=== PATIENT | female | born 1945 | race Caucasian/White ===

== ENCOUNTER 2024-02-08 13:38 | Emergency (ER) | payer OTHER, SELFPAY ==
[2024-02-08] VITALS (15 sets, daily range): BP systolic 122–144; BP diastolic 72–88; PULSE 74–91; RESP 18; O2SAT 88–93; BMI 29.0
--- NOTE | 2024-02-08 14:05 | ED_ITS ---
HPI - General Adult General Chief complaint: Abdominal Pain Stated complaint: Abdominal pain Time Seen by Provider: 02/08/24 13:51 History of Present Illness HPI narrative: Patient presents to the emergency department complaining of abdominal pain. Patient states she has had difficulty having bowel movement. She states she had to strain to get a small bowel movement out today. Feels like I have a baby in there Complaining of bloating and nausea no actual vomiting yet. 78-year-old woman presenting to the emergency department with concern of increasing abdominal pain and distention. Will get some intermittent sharp cramps of pain. Does have a history of uterine cancer and intravaginal radiation along with associated surgery. Has also had gastric bypass. Beginning yesterday afternoon began to have an increasing pain. Does dry heave but understandably does not apparently typically vomit. She has also been having some constipation noting small hard stool early this morning and probably yesterday as well. Does seem to alternate between constipation and diarrhea. Has been admitted for bowel obstructions in the past. Has not required intervention beyond bowel rest. She has not had a fever here today. Did try some Zofran at home. Feels like she is belching a lot. Has not been passing any gas since stool as noted above. Related Data Home Medications Medication Instructions Recorded Confirmed albuterol sulfate 90 mcg/actuation 2 puff inhalation Q4-6H PRN 02/08/24 02/08/24 aerosol inhaler wheezing atorvastatin 10 mg tablet 10 mg PO DAILY cholesterol 02/08/24 02/08/24 cholecalciferol (vitamin D3) 125 PO 02/08/24 mcg (5,000 unit) capsule gabapentin 300 mg capsule 300 mg PO 3XD 02/08/24 02/08/24 gabapentin 600 mg tablet 300 mg PO 3XD 02/08/24 02/08/24 hydrochlorothiazide 25 mg tablet 25 mg PO DAILY blood pressure 02/08/24 02/08/24 lisinopril 40 mg tablet 40 mg PO DAILY blood pressure 02/08/24 02/08/24 metoprolol tartrate 25 mg tablet 25 mg PO BID 02/08/24 02/08/24 oxybutynin chloride 5 mg 5 mg PO DAILY 02/08/24 02/08/24 tablet,extended release 24 hr vibegron 75 mg tablet (Gemtesa) 75 mg PO DAILY 02/08/24 02/08/24 Allergies Allergy/AdvReac Type Severity Reaction Status Date / Time No Known Drug Allergies Allergy Verified 02/08/24 16:38 Review of Systems 2 Status of ROS: Reports: 6 or more systems reviewed and unremarkable except as noted in History and below [facility] Social History Smoking Status: Never smoker Do you use any of these nicotine containing products: None Second hand tobacco smoke exposure: No How often do you have a drink containing alcohol: never How often do you have six or more drinks on one occasion: Never AUDIT-C Alcohol total score: 0 Non-prescribed substance use: denies use Exam Narrative: Exam Narrative: Pleasant. Conversing easily. Breathing easily. Lungs appear to be clear. Abdomen with sparse but very audible bowel sounds. Does appear generally full and mildly tense. Diffusely mildly tender without peritoneal signs. Diffusely tympanitic. Tender also to percussion. Heart in mildly elevated rate in a regular rhythm. She has a 2/6 although systolic murmur with some carotid radia tion. Consistent with aortic stenosis. Lower extremities are with some dependent edema. Is well-perfused moving all extremities without difficulty Const: Vital Signs, click to edit/add: Vital Signs - 24 hr 02/08/24 13:46 02/08/24 18:29 02/08/24 18:30 Pulse Rate 91 83 Pulse Rate [Right Pulse Oximeter] 90 Respiratory Rate 18 Blood Pressure Blood Pressure [Ri ght Upper Arm] 144/88 H Pulse Oximetry 93 90 92 Oxygen Delivery Me thod Room Air 02/08/24 18:48 02/08/24 18:49 02/08/24 19:00 Pulse Rate 79 82 79 Pulse Rate [Right Pulse Oximeter] Respiratory Rate Blood Pressure 130/80 Blood Pressure [Ri ght Upper Arm] Pulse Oximetry 89 88 93 Oxygen Delivery Me thod 02/08/24 19:02 02/08/24 19:15 02/08/24 19:21 Pulse Rate 84 85 81 Pulse Rate [Right Pulse Oximeter] Respiratory Rate Blood Pressure 129/72 138/78 Blood Pressure [Ri ght Upper Arm] Pulse Oximetry 92 93 91 Oxygen Delivery Me thod 02/08/24 19:30 02/08/24 19:41 02/08/24 19:45 Pulse Rate 87 84 82 Pulse Rate [Right Pulse Oximeter] Respiratory Rate Blood Pressure 128/79 Blood Pressure [Ri ght Upper Arm] Pulse Oximetry 91 89 92 Oxygen Delivery Ks thod Documenting provider has reviewed patient's vital signs: yes Course Vital Signs Vital signs: Initial Vital Signs Pulse Rate 90 02/08/24 13:46 Pulse Rhythm Regular 02/08/24 13:46 Pulse Strength 3+ Normal 02/08/24 13:46 Respiratory Rate 18 02/08/24 13:46 Blood Pressure 144/88 H 02/08/24 13:46 Blood Pressure Mean 106 H 02/08/24 13:46 Blood Pressure Position Supine 02/08/24 13:46 Pulse Oximetry 93 02/08/24 13:46 Oxygen Delivery Method Room Air 02/08/24 13:46 Vital Signs Pulse Rate 90 02/08/24 13:46 Respiratory Rate 18 02/08/24 13:46 Blood Pressure 144/88 H 02/08/24 13:46 Pulse Oximetry 93 02/08/24 13:46 Oxygen Delivery Method Room Air 02/08/24 13:46 Pulse Rate 82 02/08/24 19:45 Respiratory Rate 18 02/08/24 13:46 Blood Pressure 128/79 02/08/24 19:41 Pulse Oximetry 92 02/08/24 19:45 Oxygen Delivery Method Room Air 02/08/24 13:46 Medications Administered Medications: Generic Name Dose Route Start Last Admin Trade Name Freq PRN Reason Stop Dose Admin Gabapentin 300 mg 02/08/24 19:07 02/08/24 19:57 Gabapentin 300 Mg Capsule PO 02/08/24 19:08 300 mg ONCE ONE Administration Metoprolol Tartrate 25 mg 02/08/24 19:07 02/08/24 19:57 Metoprolol Tartrate 25 Mg Tablet PO 02/08/24 19:08 25 mg ONCE ONE Administration Discontinued Medications Generic Name Dose Route Start Last Admin Trade Name Freq PRN Reason Stop Dose Admin Hyoscyamine 0.25 mg 02/08/24 14:21 02/08/24 15:08 Hyoscyamine Sulfate 0.125 Mg Tab SUBLINGUAL 02/08/24 14:22 0.25 mg ONCE ONE Administration Sodium Chloride 1,000 mls @ 1,000 mls/hr 02/08/24 14:21 02/08/24 16:06 0.9 % Sodium Chloride 1000 Ml IV 02/08/24 15:20 Infused .Q1H ONE Infusion Ondansetron HCl 4 mg 02/08/24 14:21 02/08/24 15:09 Ondansetron 2 Mg/Ml Inj IVP 02/08/24 14:22 4 mg ONCE ONE Administration Medical Decision Making MDM Narrative Medical decision making narrative: I considered evaluated for constipation initially but I think given her history would be prudent to do full workup with evaluation for bowel obstruction. IV contrasted CT has been ordered along with labs. IV fluids, antiemetic, hyoscyamine for cramping Labs are reassuring with normal white count. Slightly elevated AST. I did review IV contrasted CT abdomen and pelvis. Shows numerous loops of moderately dilated small bowel consistent with small-bowel obstruction. Radiology over-read as below Study:?CT-Abdomen/Pelvis 91CC ISOVUE 370-02/08/2024 4:37:01 PM Ordering Physician:?DR BARRON Final Report: INDICATION: Abdominal pain and distention. TECHNIQUE: CT abdomen and pelvis acquired with 91 cc Isovue 370 IV contrast. COMPARISON: None. FINDINGS: Lower chest: Mild bibasilar atelectasis. Cardiomegaly. Aortic valve and mitral annular calcifications. Liver: Hepatic steatosis. No suspicious masses. Gallbladder and bile ducts: Status post cholecystectomy. Spleen: Unremarkable. Normal in size. No masses. Adrenal glands: Unremarkable. No nodules. Pancreas: Atrophy of the pancreas. Kidneys: Right renal cyst. No suspicious masses, stones, or hydronephrosis. GI tract: Markedly distended fluid-filled loops of small bowel with transition point in the pelvis. Collapsed small bowel distal to the transition point. Appendix not visualized. Lymph nodes: No lymphadenopathy. Vasculature: Scattered atherosclerotic calcifications. Abdominal aorta is normal in caliber. Omentum/Peritoneum/Abdominal Wall: Trace free fluid. Mild presacral stranding. No focal fluid collection. No free air. Pelvis: Status post hysterectomy. Bones: Degenerative changes. L3-L4 instrumented fusion. IMPRESSION: High-grade small bowel obstruction Did discuss with our general surgery for admission for bowel rest to this facility. Concern would be though that if surgery is needed, considering prior gastric bypass would have greater concern of internal hernia and significant adhesions secondary to pelvic/vaginal radiation. Recommendations were for transport to tertiary facility. Has been quite comfortable just belching periodically here in the emergency department. Did have one bowel movement. I have discussed with General surgery, Dr. Schmitz, [facility], namely [facility] in [place], who approves as appropriate for admission. Discussed also with hospitalist Dr. Mejia who is accepting. At this time anticipating transport. Lab Data Lab results reviewed: Yes I reviewed the patient's lab results Labs: Lab Results 02/08/24 Range/Units 14:42 WBC 5.44 (4.50-11.00) K/uL RBC 4.22 (4.00-5.20) m/uL Hgb 12.8 (12.0-16.0) gm/dL Hct 40.6 (33.0-51.0) % MCV 96 (80-100) fL MCH 30 (26-34) pg MCHC 32 (32-36) gm/dL RDW Coeff of Dinora 14.4 (11.5-15.5) % Plt Count 232 (140-440) K/uL Neut % (Auto) 66.4 (42.0-72.0) % Lymph % (Auto) 21.9 (20-44) % [place] % (Auto) 9.9 (0.0-11.0) % Eos % (Auto) 0.9 (0.0-7.0) % Baso % (Auto) 0.7 (0.0-3.0) % Neut # (Auto) 3.61 (1.7-7.0) K/uL Lymph # (Auto) 1.19 (0.90-2.90) K/uL [place] # (Auto) 0.50 (0.00-0.90) K/UL Eos # (Auto) 0.05 (0.00-0.50) K/uL Baso # (Auto) 0.04 (0.00-0.30) K/uL Abs Immat Gran (auto) 0.01 (0.00-0.30) K/uL Imm/Tot Granulo (auto) 0.2 % Sodium 137 (135-149) mmol/L Potassium 3.9 (3.6-5.1) mmol/L Chloride 100 (96-114) mmol/L Carbon Dioxide 32 (20-32) mmol/L Anion Gap 5 L (7-15) mEq/L BUN 21 (7-30) mg/dL Creatinine 0.6 (0.5-1.5) mg/dL Estimated Creat Clear 43.63 Estimated GFR 91 ml/min Glucose 93 (60-115) mg/dL Calcium 8.1 L (8.4-10.6) mg/dL Total Bilirubin 0.7 (0.1-1.5) mg/dL Direct Bilirubin 0.1 (0.0-0.5) mg/dL AST 50 H (12-35) U/L ALT 34 (4-35) U/L Alkaline Phosphatase 78 (40-150) U/L C-Reactive Protein < 0.5 L (0.5-1.0) mg/dL Total Protein 6.6 (6.0-8.3) g/dL Albumin 3.5 (3.3-5.0) g/dL TSH 2.500 (0.270-4.20) uIU/mL Discharge Plan Discharge Clinical Impression: SBO (small bowel obstruction) Patient Disposition: Xfer Other Discharge Location: [facility] Condition: Stable Prescriptions: No Action gabapentin 600 mg tablet 300 mg PO 3XD atorvastatin 10 mg tablet 10 mg PO DAILY oxybutynin chloride 5 mg tablet extended release 24hr 5 mg PO DAILY gabapentin 300 mg capsule 300 mg PO 3XD hydrochlorothiazide 25 mg tablet 25 mg PO DAILY albuterol sulfate 90 mcg/actuation HFA aerosol inhaler 2 puff inhalation Q4-6H PRN (Reason: wheezing) lisinopril 40 mg tablet 40 mg PO DAILY cholecalciferol (vitamin D3) 125 mcg (5,000 unit) capsule PO metoprolol tartrate 25 mg tablet 25 mg PO BID Gemtesa 75 mg tablet 75 mg PO DAILY Follow Up/Referrals: Wallace Hammonds MD [Primary Care Provider] - Stand Alone Forms: [facility] Info Instructions
--- NOTE | 2024-02-08 14:23 | CT_ITS ---
Patient: MORENO MCDANIEL Facility:?[facility] Patient ID:?[id number] Site Patient [id number]:?[id number]. Site :?[id number] Study:?CT-Abdomen/Pelvis 91CC ISOVUE 370-02/08/2024 4:37:01 PM Ordering Physician:?DR GONSALEZ Final Report: INDICATION: Abdominal pain and distention. TECHNIQUE: CT abdomen and pelvis acquired with 91 cc Isovue 370 IV contrast. COMPARISON: None. FINDINGS: Lower chest: Mild bibasilar atelectasis. Cardiomegaly. Aortic valve and mitral annular calcifications. Liver: Hepatic steatosis. No suspicious masses. Gallbladder and bile ducts: Status post cholecystectomy. Spleen: Unremarkable. Normal in size. No masses. Adrenal glands: Unremarkable. No nodules. Pancreas: Atrophy of the pancreas. Kidneys: Right renal cyst. No suspicious masses, stones, or hydronephrosis. GI tract: Markedly distended fluid-filled loops of small bowel with transition point in the pelvis. Collapsed small bowel distal to the transition point. Appendix not visualized. Lymph nodes: No lymphadenopathy. Vasculature: Scattered atherosclerotic calcifications. Abdominal aorta is normal in caliber. Omentum/Peritoneum/Abdominal Wall: Trace free fluid. Mild presacral stranding. No focal fluid collection. No free air. Pelvis: Status post hysterectomy. Bones: Degenerative changes. L3-L4 instrumented fusion. IMPRESSION: High-grade small bowel obstruction. Please note that all CT scans at this facility use dose modulation, iterative reconstruction, and/or weight-based dosing when appropriate to reduce radiation dose to as low as reasonably achievable. Dictated by Holger Paris MD @ 02/08/2024 4:55:32 PM Signed by:?Holger Paris MD @02/08/2024 4:55:32 PM (Electronic Signature)
[2024-02-08 15:03] LABS: Basophils Absolute Auto 0.04 K/uL (0.00-0.30); Basophils Percent Auto 0.7 % (0.0-3.0); Eosinophils Absolute Auto 0.05 K/uL (0.00-0.50); Eosinophils Percent Auto 0.9 % (0.0-7.0); Hematocrit 40.6 % (33.0-51.0); Hemoglobin* 12.8 gm/dL (12.0-16.0); Immature Granulocytes Abs Auto 0.01 K/uL (0.00-0.30); Immature Granulocytes Pct Auto 0.2 %; Lymphocytes Absolute Auto 1.19 K/uL (0.90-2.90); Lymphocytes Percent Auto 21.9 % (20-44); Mean Corpuscular HGB Conc 32 gm/dL (32-36); Mean Corpuscular Hemoglobin 30 pg (26-34); Mean Corpuscular Volume 96 fL (80-100); Monocytes Percent Auto 9.9 % (0.0-11.0); Neutrophils Absolute Auto 3.61 K/uL (1.7-7.0); Neutrophils Percent Auto 66.4 % (42.0-72.0); Platelet Count* 232 K/uL (140-440); RDW Coefficient of Variation % 14.4 % (11.5-15.5); Red Blood Count 4.22 m/uL (4.00-5.20); White Blood Count* 5.44 K/uL (4.50-11.00)
[2024-02-08] MEDS: 0.9 % SODIUM CHLORIDE 1000 ml 1,000 ML IV (15:08)
[2024-02-08] MEDS: HYOSCYAMINE SULFATE 0.125 MG TAB 0.25 MG SUBLINGUAL (15:08)
[2024-02-08] MEDS: ONDANSETRON 2 MG/ML inj 4 MG IVP (15:09)
[2024-02-08 15:21] LABS: Slide Review Reflex No
[2024-02-08 15:23] LABS: Albumin* 3.5 g/dL (3.3-5.0); Chloride* 100 mmol/L (96-114); Sodium* 137 mmol/L (135-149)
[2024-02-08 15:24] LABS: Potassium* 3.9 mmol/L (3.6-5.1)
[2024-02-08 15:25] LABS: Creatinine* 0.6 mg/dL (0.5-1.5); Est. Creatinine Clearance* 43.63; Estimated Glomerular Filt Rate 91 ml/min
[2024-02-08 15:26] LABS: Alanine Aminotransferase* 34 U/L (4-35); Alkaline Phosphatase* 78 U/L (40-150); Anion Gap 5 mEq/L (7-15); Aspartate Amino Transferase* 50 U/L (12-35); Bilirubin Direct* 0.1 mg/dL (0.0-0.5); Bilirubin Total* 0.7 mg/dL (0.1-1.5); Blood Urea Nitrogen* 21 mg/dL (7-30); Carbon Dioxide* 32 mmol/L (20-32); Total Protein* 6.6 g/dL (6.0-8.3)
[2024-02-08 15:27] LABS: Calcium* 8.1 mg/dL (8.4-10.6); Glucose* 93 mg/dL (60-115)
[2024-02-08 15:33] LABS: C Reactive Protein* < 0.5 mg/dL (0.5-1.0)
[2024-02-08] MEDS: METOPROLOL TARTRATE 25 MG TABLET PO (19:57)
[2024-02-08] MEDS: GABAPENTIN 300 MG CAPSULE PO (19:57)
[2024-02-09 00:33] VITALS: BP 128/87; PULSE 70; RESP 20; O2SAT 92
[2024-02-09] MEDS: ONDANSETRON ODT 4 MG TAB PO (00:37)
== END 2024-02-09 01:00 | disposition other institution (70) ==
PROVIDERS: Emergency Provider Family Medicine; PCP Family Medicine
DX: K56.609 Unspecified intestinal obstruction, unspecified as to partial versus complete obstruction (principal)
CPT/HCPCS: 36415; 74177; 80048; 80076; 84443; 85025; 86140; 96374; 99284; 99285; A9270; J2405; J7030; Q9967

== ENCOUNTER 2024-02-09 00:46 | Outpatient (CLI) | payer OTHER, SELFPAY | END 2024-02-09 00:47 | disposition home or self-care (01) | LOC: AMB 02-15 13:32 | PROVIDERS: PCP Family Medicine; Visit Provider Student in an Organized Health Care Education/Training Program | DX: K56.609 Unspecified intestinal obstruction, unspecified as to partial versus complete obstruction (principal) | CPT/HCPCS: A0425; A0429 ==